=== PATIENT | female | born 1955 | race African-American/Black ===

== ENCOUNTER 2021-11-06 11:19 | Outpatient (CLI) | payer MEDICARE | END 2021-11-06 11:20 | disposition home or self-care (01) | LOC: BICRAD 11:19 | PROVIDERS: ATTEND Family Medicine | DX: M54.50 Low back pain, unspecified (principal); M47.816 Spondylosis without myelopathy or radiculopathy, lumbar region; M47.817 Spondylosis without myelopathy or radiculopathy, lumbosacral region | CPT/HCPCS: 72100 ==

== ENCOUNTER 2021-11-28 13:47 | Outpatient (CLI) | payer MEDICARE | END 2021-11-28 13:48 | disposition home or self-care (01) | LOC: BICULT 13:47 | PROVIDERS: ATTEND Family Medicine | DX: N28.1 Cyst of kidney, acquired (principal) | CPT/HCPCS: 76770 ==